=== PATIENT | female | born 1960 | race Caucasian/White ===

== ENCOUNTER 2018-08-11 09:43 | Inpatient (IN) | payer OTHER, SELFPAY ==
[2018-08-11] VITALS (17 sets, daily range): BP systolic 88–158; BP diastolic 42–69; PULSE 70–103; RESP 15–26; TEMP 37–37.5; O2SAT 90–100; BMI 31.1
--- NOTE | 2018-08-11 | PATH_ITS ---
[facility] Accession Number: [id number] . 01 Material submitted: . APPENDIX . 02 Diagnosis: Appendix, Laparoscopic Appendectomy: Acute appendicitis and serositis with features suggestive of rupture by microscopic examination. MRV/08/13/2018 . 02 Electronically signed: . Jesika Toscano MD, Pathologist NPI- [id number] . 01 Gross description: . Received in formalin, labeled appendix, is an intact appendix (length-6.3 cm, diameter-1.5 cm) with jansen-jackson smooth shiny focally eroded serosa with attached mesoappendix (up to 3.0 cm in depth). The resection margin is received opened. The specimen is partially covered in jansen-jackson flaky friable exudate. The lumen contains brown, solid soft material. The wall is up to 0.2 cm thick. No nodules, masses or lesions are identified. The resection margin is inked black. Section code: (A1) resection margin en face and three additional manufacturer representative serial sections; (A2) one-half of the bivalved tip. ([id number]) /MRV . 02 Pathologist provided ICD-10: K35.20 . 02 CPT . 713587 Performed at: 01 [facility] [address], [place], [place] [id number] MD Ever Douglas MD Phone: [phone] Performed at: 02 [facility] [address] [place], [place] [id number] MD Telma Rubio MD Phone: [phone]
--- NOTE | 2018-08-11 10:09 | PC.NURSE ---
reports anterior abdominal pain onset friday night, stabbing, with abdominal distentions, nausea and vomiting 12 times in the last 24 hours. diarrhea last friday, denies diarrhea at this time, denies fever. reports, with frontal headache due to dehydrations.
--- NOTE | 2018-08-11 10:33 | ED.ABDPAIN ---
HPI - Abdominal Pain General Chief Complaint: Abdominal Pain Stated Complaint: throwing up for 2 days Time Seen by Provider: 08/11/18 09:56 Source: patient Mode of arrival: ambulatory Limitations: no limitations History of Present Illness HPI narrative: Patient is a 57-year-old female who presents with abdominal pain. She actually has had nausea vomiting ongoing for the last 3 days. She has had regular bowel movements. She has lower abdominal cramping more on right than left. No fever. She has been unable to keep anything down. MD complaint: abdominal pain Onset (ago): day(s) Pain Consistency: constant Location: diffuse Severity: mild Quality: cramping Related Data Home Medications Medication Instructions Recorded Confirmed Fish Oil 1 cap PO DAILY 08/11/18 08/11/18 Vitamin B 1 tab PO DAILY 08/11/18 08/11/18 Vitamin C 1 tab PO DAILY 08/11/18 08/11/18 Vitamin D3 1 cap PO DAILY 08/11/18 08/11/18 cetirizine [Zyrtec] 10 mg PO DAILY 08/11/18 08/11/18 magnesium 1 tab PO DAILY 08/11/18 08/11/18 multivitamin 1 tab PO DAILY 08/11/18 08/11/18 potassium 1 tab PO DAILY 08/11/18 08/11/18 Allergies Allergy/AdvReac Type Severity Reaction Status Date / Time No Known Drug Allergies Allergy Verified 08/11/18 14:17 Review of Systems Review of Systems GENERAL: Denies chills, fatigue, malaise, fever, sweats, travel HEENT: Denies sinus pain, ear pain, sore throat, difficulty swallowing, neck pain RESPIRATORY: Denies dyspnea, cough, wheezing, hemoptysis, sputum. CARDIOVASCULAR: Denies chest pain, palpitations, orthopnea, edema GASTROINTESTINAL: See HPI : Denies dysuria, frequency, incontinence, hematuria, urinary retention, flank pain. MUSCULOSKELETAL: Denies weakness, joint pain, or bony pain SKIN: No rash, no erythema, no pruritus NEUROLOGIC: Denies weakness, dizziness, headache, numbness, change in speech, confusion PSYCHIATRIC: No concerning psychosocial issues. 12 point review of systems is negative except for those stated above and HPI PFSH Surgical History Status post left cataract extraction (Acute) S/P GARRETT-BSO (Resolved) Social History household members: family Smoking Status: Current some day smoker Social History household members: family Smoking Status: Current some day smoker Exam Initial Vital Signs Initial Vital Signs: Vital Signs Temperature 99.0 F 08/11/18 09:55 Pulse Rate 102 H 08/11/18 09:55 Respiratory Rate 16 08/11/18 09:55 Blood Pressure 143/68 H 08/11/18 09:55 Pulse Oximetry 100 08/11/18 09:55 GENERAL: Alert female appears in mild distress HEENT: Head atraumatic,EOMI, pupils reactive, CARDIOVASCULAR: Regular rate and rhythm without murmurs, rubs or gallops. RESPIRATORY: Breath sounds equal bilaterally, no wheezes rales or rhonchi. ABDOMEN: Soft, mild lower abdominal tenderness right more than left. No right upper quadrant pain negative Fortune sign no guarding or rebound EXTREMITIES: Normal range of motion, no clubbing or edema. Neurovascularly intact NEUROLOGICAL: Alert and oriented x4.Normal gait and speech. Cranial nerves II through XII grossly intact. SKIN: Warm, dry, no laceration, no petechiae, no rashes or lesions. Course Orders Ordered: ED Orders 08/11/18 10:10 Urine Culture Stat Urine Microscopic Stat 08/11/18 10:33 CT abdomen pelvis w con Stat 08/11/18 11:00 Complete Blood Count AUTO DIFF Stat Comprehensive Metabolic Panel Stat Lipase Stat Sodium Chloride (Normal Saline 0.9%) 1,000 mls @ 1,000 mls/hr IV CONT TOÑA Last Admin: 08/11/18 11:08 Dose: 1,000 mls/hr Ampicillin Sodium/Sulbactam (Sodium 3 gm/ Sodium Chloride) 100 mls @ 100 mls/hr IV PREOP TOÑA Lactated Ringer's (Lactated Ringers) 1,000 mls @ 100 mls/hr IV CONT TOÑA Last Admin: 08/11/18 13:50 Dose: 100 mls/hr Discontinued Medications Piperacillin/Tazobactam/Dextrose (Zosyn) 3.375 gm in 50 mls @ 100 mls/hr IV NOW ONE Stop: 08/11/18 12:36 Last Infusion: 08/11/18 13:16 Dose: 0 mls/hr Admin: 08/11/18 12:34 Dose: 100 mls/hr Ketorolac Tromethamine (Toradol) 30 mg IV NOW ONE Stop: 08/11/18 10:23 Last Admin: 08/11/18 11:08 Dose: 30 mg Ondansetron HCl (Zofran) 4 mg IV NOW ONE Stop: 08/11/18 10:23 Last Admin: 08/11/18 11:08 Dose: 4 mg Vital Signs - 8 hr 08/11/18 09:55 08/11/18 11:12 08/11/18 12:00 Temperature 99.0 F Pulse Rate 102 H 100 H 103 H Respiratory Rate 16 17 26 H Blood Pressure 143/68 H Blood Pressure [Left Arm] 158/62 H 135/56 L Pulse Oximetry 100 97 95 08/11/18 13:00 Temperature Pulse Rate 92 H Respiratory Rate 22 Blood Pressure Blood Pressure [Left Arm] 134/56 L Pulse Oximetry 96 MDM - Abdominal Pain Lab Data Attestation: I reviewed the patient's lab results. Result diagrams: 08/11/18 11:00 08/11/18 11:00 Lab Results 08/11/18 08/11/18 08/11/18 Range/Units 10:10 11:00 11:00 WBC 21.9 H (4.5-11.0) X10^3/uL RBC 5.44 H (4.0-5.2) X10^6/uL Hgb 15.6 (12.0-16.0) g/dL Hct 46.9 H (36-46) % MCV 86.2 (80-100) fL MCH 28.8 (26-34) PG MCHC 33.4 (30-36) % RDW 14.2 (11.6-14.8) % Plt Count 263 (150-400) X10^3/uL Neut % (Auto) 90.1 H (50-75) % Lymph % (Auto) 3.6 L (25-40) % [place] % (Auto) 6.1 (3-14) % Eos % (Auto) 0.0 L (2-4) % Baso % (Auto) 0.2 (0-2) % Neut # (Auto) 35174 H (3545-6416) /uL Lymph # (Auto) 800 L (9481-7910) /uL [place] # (Auto) 1300 H (0-900) /uL Eos # (Auto) 0 (0-450) /uL Baso # (Auto) 0 (0-100) /uL Sodium 141 (137-145) mmol/L Potassium 4.1 (3.4-5.1) mmol/L Chloride 100 (98-107) mmol/L Carbon Dioxide 28 (22-32) mmol/L BUN 11 (7-17) mg/dL Creatinine 0.90 (0.52-1.04) mg/dL Estimated GFR > 60.0 (>60) mL/min BUN/Creatinine Ratio 12.2 (6-22) Glucose 139 H (70-100) mg/dL Calcium 9.7 (8.4-10.2) mg/dL Total Bilirubin 1.0 (0.2-1.3) mg/dL AST 24 (14-36) IU/L ALT 48 (9-52) IU/L Alkaline Phosphatase 93 (38-126) U/L Total Protein 8.4 H (6.3-8.2) g/dL Albumin 4.8 (3.5-5.0) g/dL Globulin 3.6 (1.7-4.1) g/dL Albumin/Globulin Ratio 1.3 (1.0-2.8) Lipase 24 (23-300) U/L Urine RBC 0-1/hpf (0-5/HPF) Urine WBC 1-5/hpf (0-5/HPF) Ur Squamous Epith Cells 1-5 /hpf Amorphous Sediment 3+ Urine Bacteria None seen (None) Urine Mucus 1+ H (Negative) Ur Culture Indicated? Specimen cultured Point of care testing: Urine Dip Bedside Urine Glucose Negative Bedside Urine Bilirubin - Negative Bedside Urine Ketone +/- 5 Urine Specific [place] 1.030 Bedside Urine Occult Blood +/- Bedside Urine pH 6.0 Bedside Urine Protein + 30 Bedside Urine Urobilinogen - Negative Bedside Urine Nitrite - Negative Bedside Urine Leukocytes +/- [address] scan - abdomen: Radiologist's impression: PROCEDURE: CT ABDOMEN PELVIS W CON INDICATIONS: lower abdomnial pain TECHNIQUE: After the administration of intravenous contrast, 5 mm thick sections acquired from the diaphragm to the symphysis. 5 mm coronal and sagittal reformats were acquired. For radiation dose reduction, the following was used: automated exposure control, adjustment of mA and/or kV according to patient size. COMPARISON: None. FINDINGS: Image quality: Excellent. ABDOMEN: Lung bases: Lung bases are clear. Heart size is normal. Solid organs: Liver is normal in size and enhancement. Gallbladder demonstrates a calculus within its lumen measuring 20 mm diameter without surrounding fat stranding.. Biliary system is non dilated. Pancreas enhances normally. Spleen is normal in size and enhancement. No adrenal nodules. Small left interpolar/inferior pole renal cysts. Kidneys demonstrate otherwise normal size and enhancement, without hydronephrosis. Peritoneum and bowel: Mildly prominent small bowel loops are present within the right and left lower quadrants, likely reactive. Bowel loops demonstrate otherwise normal wall thickness and caliber. The appendix is moderately distended measuring 14 mm, and demonstrating severe surrounding fat stranding as well as a small amount of surrounding fluid. An appendicolith is present at the base. No free fluid or air. Nodes and vessels: No retroperitoneal or mesenteric adenopathy by size criteria. Aorta and inferior vena cava are normal in size. Miscellaneous: No ventral hernias. PELVIS: Genitourinary: Bladder wall thickness is normal. Miscellaneous: No inguinal hernias or adenopathy. Bones: No suspicious bony lesions. No vertebral body compression fractures. IMPRESSION: 1. Severe appendicitis with appendicolith, possibly ruptured. Mild adjacent small bowel dilatation, consistent with secondary ileus. 2. Cholelithiasis. 3. Findings discussed with Dr. Barron on 08.11.18 at 1153 hrs. Dictated by: Fidel Pablo M.D. on 08/11/2018 at 11:51 Approved by: Fidel Pablo M.D. on 08/11/2018 at 11:54 MDM Narrative Medical decision making narrative: 12:05pm Dr. Rodrigues notified of patient's symptoms and test results. Recommend Cory will be down to evaluate her shortly Patient going directly to OR Discharge Plan Departure Patient Disposition: Admitted As Inpatient Clinical Impression: Acute appendicitis Discharge Date/Time: 08/11/18 13:32 Interventions: ED Discharge Assessment Last Done: 08/11/18 13:26 Admit Date/Time: 08/11/18 13:16 Admit Provider: Mann Rodrigues
[2018-08-11 10:35] LABS: Bacteria Urine None Seen
[2018-08-11 10:50] LABS: Amorphous Sediment Urine 3+; Mucus Urine 1+ (Negative); RBC Urine 0-1/HPF (0-5/HPF); Squamous Epithelial Cell Urine 1-5 /HPF; WBC Urine 1-5/HPF (0-5/HPF)
[2018-08-11 10:51] LABS: Culture Indicated Urine Specimen Cultured
[2018-08-11] MEDS: ONDANSETRON 4 MG/2 ML INJ IV (11:08)
[2018-08-11] MEDS: SODIUM CHLORIDE 0.9% 1,000 ML 1000 ML IV (11:08)
[2018-08-11] MEDS: KETOROLAC 60 MG/2 ML VIAL 30 MG IV (11:08)
[2018-08-11 11:10] LABS: Add Manual Diff / Slide Review NO; Basophils Absolute Auto 0 /uL (0-100); Basophils Percent Auto 0.2 % (0-2); Eosinophils Absolute Auto 0 /uL (0-450); Hematocrit 46.9 % (36-46); Hemoglobin 15.6 g/dL (12.0-16.0); Lymphocytes Absolute Auto 800 /uL (1100-4500); Lymphocytes Percent Auto 3.6 % (25-40); Mean Corpuscular HGB Conc 33.4 % (30-36); Mean Corpuscular Hemoglobin 28.8 PG (26-34); Mean Corpuscular Volume 86.2 fL (80-100); Monocytes Absolute Auto 1300 /uL (0-900); Monocytes Percent Auto 6.1 % (3-14); Neutrophils Absolute Auto 19800 /uL (1500-7000); Neutrophils Percent Auto 90.1 % (50-75); Platelet Count 263 X10^3/uL (150-400); Red Blood Cell Count 5.44 X10^6/uL (4.0-5.2); Red Cell Distribution Width 14.2 % (11.6-14.8); White Blood Cell Count 21.9 X10^3/uL (4.5-11.0)
[2018-08-11 11:21] LABS: Alanine Aminotransferase 48 IU/L (9-52); Albumin 4.8 g/dL (3.5-5.0); Albumin Globulin Ratio 1.3 (1.0-2.8); Alkaline Phosphatase 93 U/L (38-126); Aspartate Aminotransferase 24 IU/L (14-36); BUN Creatinine Ratio 12.2 (6-22); Blood Urea Nitrogen 11 mg/dL (7-17); Calcium 9.7 mg/dL (8.4-10.2); Carbon Dioxide 28 mmol/L (22-32); Chloride 100 mmol/L (98-107); Estimated Glomerular Filt Rate > 60.0 mL/min (>60); Globulin 3.6 g/dL (1.7-4.1); Glucose 139 mg/dL (70-100); HEMOLYSIS < 15 (0-50); Lipase 24 U/L (23-300); Potassium 4.1 mmol/L (3.4-5.1); Sodium 141 mmol/L (137-145); Total Protein 8.4 g/dL (6.3-8.2)
[2018-08-11] MEDS: PIPERACILLIN-TAZO 3.375 GM/50 ML FROZ.PIGGY IV ×3 (12:34→23:31)
--- NOTE | 2018-08-11 13:30 | P.HP_ITS ---
History of Present Illness Date Patient Seen: 08/11/18 Time Patient Seen: 13:10 Chief complaint: throwing up for 2 days Narrative: The patient is a woman with a 4 day history of abdominal pain accompanied by nausea and vomiting. The pain has settled in her right lower quadrant. She has never had pain like this before. It increases with motion. Is persistent dull ache. Holding still makes it feel a little better. Patient History Surgical History Status post left cataract extraction (Acute) S/P GARRETT-BSO (Resolved) Social History Smoking Status: Current some day smoker Family & Social History Safety & Behavioral: Feels Safe in Current Yes Environment Been Physically Hurt or No Threatened By a Person Tobacco & Substance use: Smoking Status Current some day smoker alcohol intake frequency 0-2 drinks per day Substance Use Type does not use Meds Home Medications Medication Instructions Recorded Confirmed Type Fish Oil 1 cap PO DAILY 08/11/18 08/11/18 History Vitamin B 1 tab PO DAILY 08/11/18 08/11/18 History Vitamin C 1 tab PO DAILY 08/11/18 08/11/18 History Vitamin D3 1 cap PO DAILY 08/11/18 08/11/18 History cetirizine [Zyrtec] 10 mg PO DAILY 08/11/18 08/11/18 History magnesium 1 tab PO DAILY 08/11/18 08/11/18 History multivitamin 1 tab PO DAILY 08/11/18 08/11/18 History potassium 1 tab PO DAILY 08/11/18 08/11/18 History Allergies Allergy/AdvReac Type Severity Reaction Status Date / Time No Known Drug Allergies Allergy Verified 08/11/18 09:59 Review of Systems Review of Systems Patient had a cataract removed from her left eye. She does not have 1 in her right eye. No other visual problems. Ears without lesion no loss of hearing. No tooth aches or trouble swallowing. No cough cold or asthma. No problems with her chest pain or heart problems or murmurs. No black or bloody bowel movements. No seizures or blackouts. No anxiety or depression. No unusual bruising or bleeding. Exam Vital Signs (past 8 hours): - 08/11/18 09:55 08/11/18 11:12 08/11/18 12:00 Temperature 99.0 F Pulse Rate 102 H 100 H 103 H Respiratory Rate 16 17 26 H Blood Pressure 143/68 H Blood Pressure [Left Arm] 158/62 H 135/56 L Pulse Oximetry 100 97 95 08/11/18 13:00 Temperature Pulse Rate 92 H Respiratory Rate 22 Blood Pressure Blood Pressure [Left Arm] 134/56 L Pulse Oximetry 96 Oxygen Delivery Method Room Air Narrative Exam Narrative: Co operative woman in no apparent distress. A little overweight. Her eyes are nonicteric. The flash of her lenses seen in her left pupil. Conjunctivae are pink. Ears without lesion. Nasal septum midline. No polyps seen. Oral mucosa is pink dry no open lesions. Lips are not split. No nodes in the neck or supraclavicular areas. Trachea is midline and mobile. Thyroid is not enlarged. There are no masses in the neck or thyroid. Lungs are clear to auscultation without rales or rhonchi. Equal percussion. Heart regular rate and rhythm without murmur gallop. No bruit in the neck. Abdomen is protuberant soft. She has localized tenderness in the right lower quadrant. The remainder the abdomen is soft. She is alert and oriented x3. Speech ring content are appropriate. No bony deformities of the extremities are noted. She has no joint swelling. Dorsalis pedis pulses are 2+ bilaterally. Objective Imaging CT scan - abdomen: My impression: Patient has they gallstone as an incidental finding. No gallbladder wall thickening. Single stone is visible. Patient has marked inflammation in the right lower quadrant. Her appendix is markedly dilated at IC what I believe her 2 fecaliths. One at the base and 1 in the shaft. No obvious abscess at this time. Labs Result Diagrams: 08/11/18 11:00 08/11/18 11:00 Labs: Laboratory Results - last 24 hr 08/11/18 08/11/18 08/11/18 10:10 11:00 11:00 WBC 21.9 H RBC 5.44 H Hgb 15.6 Hct 46.9 H MCV 86.2 MCH 28.8 MCHC 33.4 RDW 14.2 Plt Count 263 Neut % (Auto) 90.1 H Lymph % (Auto) 3.6 L [place] % (Auto) 6.1 Eos % (Auto) 0.0 L Baso % (Auto) 0.2 Neut # (Auto) 30808 H Lymph # (Auto) 800 L [place] # (Auto) 1300 H Eos # (Auto) 0 Baso # (Auto) 0 Sodium 141 Potassium 4.1 Chloride 100 Carbon Dioxide 28 BUN 11 Creatinine 0.90 Estimated GFR > 60.0 BUN/Creatinine Ratio 12.2 Glucose 139 H Calcium 9.7 Total Bilirubin 1.0 AST 24 ALT 48 Alkaline Phosphatase 93 Total Protein 8.4 H Albumin 4.8 Globulin 3.6 Albumin/Globulin Ratio 1.3 Lipase 24 Urine RBC 0-1/hpf Urine WBC 1-5/hpf Ur Squamous Epith Cells 1-5 /hpf Amorphous Sediment 3+ Urine Bacteria None seen Urine Mucus 1+ H Ur Culture Indicated? Specimen cultured Assessment & Plan Plan: Assessment/Plan Narrative: Healthy patient with 4 day history of abdominal pain and findings suggestive of perforation of the appendix. It may be localized given house off the remainder of her abdomen is. I have discussed the operation laparoscopically remove her appendix. I also talked to her about the potential need open to remove it. Risks of bleeding infection abscess formation were discussed. She appears to understand. I told her to expect have a drain. I also talked to her about her gallstone. This may be simply an incidental finding that is asymptomatic and therefore may be observed. We will deal with that as an outpatient.
[2018-08-11] MEDS: LACTATED RINGERS 1,000 ML 100 ML IV (13:50)
[2018-08-11] MEDS: AMPICILLIN/SULBACTAM 3 GM 3 GM in SODIUM CHLORIDE 0.9% 100 ML IV (14:48)
--- NOTE | 2018-08-11 15:26 | SUR.OPER ---
Supine on padded OR bed, head on pillow, safety belt at thigh, left arm padded and tucked at side. Right arm secured on padded arm oard <90 degrees abduction. Legs uncrossed. Padded footboard in place. Tape over blanket to secure lower legs.
[2018-08-11] MEDS: BUPIVACAINE 0.5% (PF) VIAL 20 ML INJ (15:38)
[2018-08-11] MEDS: LACTATED RINGERS 1,000 ML 42 ML IV (16:15)
[2018-08-11] MEDS: LACTATED RINGERS 1,000 ML 125 ML IV (17:53)
--- NOTE | 2018-08-11 18:48 | P.OP_ITS ---
Operative Date/Time/Diagnoses Date of procedure: 08/11/18 Time of procedure: 18:40 Pre-op diagnosis: Perforated appendicitis acute Post-op diagnosis: same Procedure & Clinicians Procedure: Laparoscopic appendectomy Same procedure as scheduled: Yes Indications: Right lower quadrant pain and fever, elevated white blood cell count, tenderness in the right lower quadrant, abnormal CT scan Surgeon: Mann Rodrigues Click Yes if Unassisted: Yes Anesthesia Type: General Operative Notes Findings: Perforated appendix with spillage of fecalith into the peritoneal cavity Closure Type: primary Specimen(s): other (Appendix) Applied: drain(s) (Hesham-Barker 7 mm placed in the right gutter) Estimated Blood Loss (mL): 10 Blood products transfused: none Procedure in detail: Patient was placed supine on the operating room table underwent general endotracheal anesthesia. She was prepped and draped in the usual fashion. Local anesthetic was infiltrated and a small incision made beneath the umbilicus. It was carried down under direct vision in the peritoneal cavity. Stay sutures of 0 Vicryl were placed in the fascia. An 12 mm port was inserted and the abdomen was insufflated. Additional port was placed in left lower quadrant. Through these 2 ports I cut adhesions of omentum to the anterior abdominal wall in the pelvic area. This allowed me to easily see into the area of the appendix. It also allowed me to place a port between the umbilicus and the suprapubic area. The cecum was identified as was the terminal ileum. The appendix was under it and densely adherent to the surrounding structures due to inflammation and perforation. Outside the appendix was stool , presumptively from a fecalith, given that the cecum was not leaking. Portions of the appendix were frankly necrotic. The mesoappendix was divided with cautery and scissors. The base was cleared and appeared to be viable. A loop of 0 PDS was placed at the base and distal to this where the appendix had perforated the appendix was transected with cautery. The appendix is immediately placed in a bag and removed without spillage. The right lower quadrant was irrigated as was the pelvis and they were suctioned free of fluid. I removed as much fecalith as I could visualize prior to irrigation. A 7 mm Hesham-Barker drain was placed in the right gutter and brought out through the suprapubic port site. It was secured with 3 0 nylon. The port other 2 ports were removed. The stay sutures at the umbilicus were tied and I closed the fascia between these 2 stay sutures with a 2 0 PDS. The wounds were irrigated and for 0 Vicryl was used to close the skin in a subcuticular interrupted fashion. Steri-Strips and Band-Aids were applied. Patient was awakened and taken recovery room good condition. Complications: none Condition: stable Disposition: PACU Plan for aftercare: Admit
[2018-08-11] MEDS: GABAPENTIN 300 MG CAPSULE PO (21:07)
[2018-08-11] MEDS: ACETAMINOPHEN 325 MG TABLET 650 MG PO (21:09)
[2018-08-11] MEDS: KETOROLAC 30 MG/ML VIAL IV (23:35)
[2018-08-12] VITALS (8 sets, daily range): BP systolic 100–116; BP diastolic 48–68; PULSE 61–80; RESP 16–18; TEMP 36.6–37.2; O2SAT 92–97
[2018-08-12] MEDS: LACTATED RINGERS 1,000 ML 125 ML IV ×2 (03:09→11:47)
[2018-08-12] MEDS: PIPERACILLIN-TAZO 3.375 GM/50 ML FROZ.PIGGY IV ×3 (05:32→16:45)
[2018-08-12 07:29] LABS: Add Manual Diff / Slide Review NO; Basophils Absolute Auto 0 /uL (0-100); Basophils Percent Auto 0.1 % (0-2); Eosinophils Absolute Auto 0 /uL (0-450); Hematocrit 38.5 % (36-46); Hemoglobin 12.7 g/dL (12.0-16.0); Lymphocytes Absolute Auto 1000 /uL (1100-4500); Lymphocytes Percent Auto 5.6 % (25-40); Mean Corpuscular HGB Conc 33.1 % (30-36); Mean Corpuscular Hemoglobin 28.5 PG (26-34); Mean Corpuscular Volume 86.4 fL (80-100); Monocytes Absolute Auto 1000 /uL (0-900); Monocytes Percent Auto 5.6 % (3-14); Neutrophils Absolute Auto 16600 /uL (1500-7000); Neutrophils Percent Auto 88.7 % (50-75); Platelet Count 187 X10^3/uL (150-400); Red Blood Cell Count 4.45 X10^6/uL (4.0-5.2); Red Cell Distribution Width 14.4 % (11.6-14.8); White Blood Cell Count 18.7 X10^3/uL (4.5-11.0)
[2018-08-12] MEDS: ENOXAPARIN 40 MG/0.4 ML SYRINGE SUBCUT (09:13)
[2018-08-12] MEDS: GABAPENTIN 300 MG CAPSULE PO ×2 (09:13→20:55)
--- NOTE | 2018-08-12 10:41 | CM.IDA ---
DC home when medically stable is expected. Following closely. MARILY Discharge Planning/Care Management CM Discharge Assessment Start: 08/12/18 10:39 Freq: Status: Active Protocol: Document 08/12/18 10:39 MARILY (Rec: 08/12/18 10:41 MARILY [id number]) Discharge Planning Assessment Assigned Outside [employer] SYLVIA Alejandro DPOA/Assigned Designee Name Bertin Fortune dtr/[email or web address] Contact Information [phone] Advance Directives? No Advance Directives on File Yes History Provided By Patient Prior Living Arrangements House Household Members family children Type of transporation used prior to Drives own vehicle admit Independent with ADL's Yes Is patient alert and oriented? Yes Barriers to Discharge No Comment Met w/pt at bedside, explained SW role. Pt lives alone, indp at baseline and goes to the [facility] for her primary care . Pt expects to remain in the hospital for at least another night or tow and has no concerns about returning home when medically stable. Pt has support from friends and family as needed. DC home is expected. Discharge Plan Home Transportation Arrangement Family Referrals Initiated None needed Whiteboard Updated in Patient Room with Yes name and ext. 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
[2018-08-12] MEDS: KETOROLAC 30 MG/ML VIAL IV ×2 (11:51→18:42)
--- NOTE | 2018-08-12 18:57 | P.PN_ITS ---
Subjective Date Patient Seen: 08/12/18 Time Patient Seen: 13:29 Interval history: Post laparoscopic appendectomy for perforated appendix with abscess formation and spillage of small amount of stool the form of fecalith. She feels much better than she did yesterday. Her pain is better. She has little nauseated really does not want to advance beyond a clear liquid diet. Exam Vital Signs (past 8 hours): - 08/12/18 12:03 08/12/18 14:40 08/12/18 15:50 Temperature 98.8 F 98.2 F Pulse Rate 72 63 79 Respiratory Rate 16 18 18 Blood Pressure 108/58 L 116/68 103/48 L Pulse Oximetry 93 97 Oxygen Delivery Method Room Air Oxygen Flow Rate 0 Narrative Exam Narrative: Excellent respiratory effort. Abdomen is soft. Localized mild tenderness the right lower quadrant. Drainage blood tinged. Objective Labs Result Diagrams: 08/12/18 06:58 08/11/18 11:00 Labs: Laboratory Results - last 24 hr 08/12/18 06:58 WBC 18.7 H RBC 4.45 Hgb 12.7 Hct 38.5 MCV 86.4 MCH 28.5 MCHC 33.1 RDW 14.4 Plt Count 187 Neut % (Auto) 88.7 H Lymph % (Auto) 5.6 L [place] % (Auto) 5.6 Eos % (Auto) 0.0 L Baso % (Auto) 0.1 Neut # (Auto) 94140 H Lymph # (Auto) 1000 L [place] # (Auto) 1000 H Eos # (Auto) 0 Baso # (Auto) 0 Assessment & Plan Post-op Postoperative Procedures Operation Date: 08/11/18 13:45 Actual Procedures Side Surgeon p Laparoscopic Appendectomy Mann Rodrigues MD Postoperative status: doing well Postoperative plan narrative: Continue broad-spectrum antibiotics. Ambulate. Advance diet when ready. Expect her to be her several more days. Quality VTE Deep Vein Thrombosis/Pulmonary Embolism Present on Admission: No
--- NOTE | 2018-08-12 19:29 | PC.NURSE ---
Patient continues to report severe headache, denies pain to abdomen; IV toradol administered; pt declines Tylenol; BTs hypoactive, flatulence present; bulky drsg to abdomen has old shadowy drainage, intact, BIRDIE drain compressed with scant serosanguinous fluid; fine crackles to RLL, pt encouraged to deep breath; pt ambulated in hallway with student nurse X1, but is lying supine with ice on forehead and lights off due to headache
[2018-08-12] MEDS: DEXTROSE 5%-0.45% NS 1,000 ML 84 ML IV (20:54)
[2018-08-13] MEDS: PIPERACILLIN-TAZO 3.375 GM/50 ML FROZ.PIGGY IV ×5 (00:17→23:11)
[2018-08-13] MEDS: OXYCODONE IR 5 MG TABLET 10 MG PO ×4 (00:22→19:00)
[2018-08-13 04:30] VITALS: BP 127/71; PULSE 82; RESP 18; TEMP 36.5; O2SAT 92
[2018-08-13 05:54] LABS: Add Manual Diff / Slide Review NO; Basophils Absolute Auto 0 /uL (0-100); Basophils Percent Auto 0.2 % (0-2); Eosinophils Absolute Auto 100 /uL (0-450); Eosinophils Percent Auto 0.6 % (2-4); Hematocrit 38.6 % (36-46); Lymphocytes Absolute Auto 1300 /uL (1100-4500); Lymphocytes Percent Auto 9.9 % (25-40); Mean Corpuscular HGB Conc 33.6 % (30-36); Mean Corpuscular Hemoglobin 28.8 PG (26-34); Mean Corpuscular Volume 85.8 fL (80-100); Monocytes Absolute Auto 800 /uL (0-900); Monocytes Percent Auto 5.7 % (3-14); Neutrophils Absolute Auto 11200 /uL (1500-7000); Neutrophils Percent Auto 83.6 % (50-75); Platelet Count 189 X10^3/uL (150-400); Red Cell Distribution Width 14.1 % (11.6-14.8); White Blood Cell Count 13.5 X10^3/uL (4.5-11.0)
[2018-08-13 07:15] VITALS: BP 115/56; PULSE 82; RESP 16; TEMP 37.2; O2SAT 92
[2018-08-13] MEDS: GABAPENTIN 300 MG CAPSULE PO ×2 (08:50→21:19)
[2018-08-13] MEDS: ENOXAPARIN 40 MG/0.4 ML SYRINGE SUBCUT (08:50)
[2018-08-13] MEDS: DEXTROSE 5%-0.45% NS 1,000 ML 84 ML IV ×2 (08:53→21:45)
[2018-08-13 11:23] VITALS: BP 146/72; PULSE 78; RESP 18; TEMP 36.9; O2SAT 96
--- NOTE | 2018-08-13 13:57 | PC.NURSE ---
Day Shift-Pt A&OX4, appropriate, Rates 2/10 abd pain, 3-5/10 headache, prn Oxycodone given X1 with good effect. Pt wanted 5mg dose not 10mg that was ordered. Abd dressing CDI, BIRDIE insitu draining sero-sang fluid on bulb suction. IVF infusing well to right AC PIV. Up indep in room, ambulating in hallways X3. No other voiced concerns, able to make needs known.
[2018-08-13 15:20] VITALS: BP 139/78; PULSE 77; RESP 16; TEMP 36.9; O2SAT 96
--- NOTE | 2018-08-13 19:36 | PM.PNPO.1 ---
Subjective Date Patient Seen: 08/13/18 Time Patient Seen: 19:28 Interval history: Patient feeling well. Very little pain. She would like some regular food. Exam Vital Signs (past 8 hours): - 08/13/18 15:20 Temperature 98.4 F Pulse Rate 77 Respiratory Rate 16 Blood Pressure 139/78 Pulse Oximetry 96 Oxygen Delivery Method Room Air Oxygen Flow Rate 0 Narrative Exam Narrative: Abdomen soft mildly distended. No unusual tenderness. Objective Labs Result Diagrams: 08/13/18 05:35 08/11/18 11:00 Labs: Laboratory Results - last 24 hr 08/13/18 05:35 WBC 13.5 H RBC 4.50 Hgb 13.0 Hct 38.6 MCV 85.8 MCH 28.8 MCHC 33.6 RDW 14.1 Plt Count 189 Neut % (Auto) 83.6 H Lymph % (Auto) 9.9 L [place] % (Auto) 5.7 Eos % (Auto) 0.6 L Baso % (Auto) 0.2 Neut # (Auto) 82757 H Lymph # (Auto) 1300 [place] # (Auto) 800 Eos # (Auto) 100 Baso # (Auto) 0 Assessment & Plan Post-op Postoperative Procedures Operation Date: 08/11/18 13:45 Actual Procedures Side Surgeon p Laparoscopic Appendectomy Mann Rodrigues MD Postoperative day: 2 Postoperative status: doing well Postoperative plan narrative: Continue DVT prophylaxis and ambulation. Will check CBC in the morning. It has almost normalized. Advanced diet. Continue broad-spectrum antibiotics. Quality VTE Deep Vein Thrombosis/Pulmonary Embolism Present on Admission: No
[2018-08-13 21:15] VITALS: BP 139/67; PULSE 75; RESP 17; TEMP 37.2; O2SAT 95
[2018-08-14 00:07] VITALS: BP 137/89; PULSE 76; RESP 18; TEMP 37.2; O2SAT 93
[2018-08-14 04:30] VITALS: BP 128/96; PULSE 80; RESP 18; TEMP 36.8; O2SAT 93
[2018-08-14] MEDS: PIPERACILLIN-TAZO 3.375 GM/50 ML FROZ.PIGGY IV ×4 (05:18→23:50)
[2018-08-14 07:12] LABS: Add Manual Diff / Slide Review NO; Basophils Absolute Auto 0 /uL (0-100); Basophils Percent Auto 0.3 % (0-2); Eosinophils Absolute Auto 200 /uL (0-450); Eosinophils Percent Auto 2.9 % (2-4); Hematocrit 39.2 % (36-46); Hemoglobin 13.2 g/dL (12.0-16.0); Lymphocytes Absolute Auto 900 /uL (1100-4500); Lymphocytes Percent Auto 11.5 % (25-40); Mean Corpuscular HGB Conc 33.7 % (30-36); Monocytes Absolute Auto 500 /uL (0-900); Monocytes Percent Auto 6.6 % (3-14); Neutrophils Absolute Auto 6500 /uL (1500-7000); Neutrophils Percent Auto 78.7 % (50-75); Platelet Count 211 X10^3/uL (150-400); Red Blood Cell Count 4.56 X10^6/uL (4.0-5.2); Red Cell Distribution Width 14.5 % (11.6-14.8); White Blood Cell Count 8.2 X10^3/uL (4.5-11.0)
[2018-08-14 08:02] VITALS: BP 137/59; PULSE 74; RESP 18; TEMP 36.4; O2SAT 94
[2018-08-14] MEDS: OXYCODONE IR 5 MG TABLET 10 MG PO ×2 (08:23→20:33)
[2018-08-14] MEDS: ACETAMINOPHEN 325 MG TABLET 650 MG PO (08:23)
[2018-08-14] MEDS: GABAPENTIN 300 MG CAPSULE PO ×2 (08:23→20:23)
[2018-08-14] MEDS: BISACODYL 10 MG SUPP PR (09:30)
[2018-08-14] MEDS: ENOXAPARIN 40 MG/0.4 ML SYRINGE SUBCUT (09:44)
[2018-08-14] MEDS: DEXTROSE 5%-0.45% NS 1,000 ML 84 ML IV ×2 (10:51→23:20)
--- NOTE | 2018-08-14 10:55 | PC.NURSE ---
Addendum entered by Jess Rose R.N. 08/14/18 14:28: PAIN - comfortable in chair, declines any pain medications at this time. Original Note: AM NOTE - alert, alonso gen diet this am, denies nausea, bt present w/flatus, does have some headache and mild abd discomfort, discussed medications and after meal given 650mg po tylenol and prefers 5mg po oxycodone, headache resolved and narcotic is managing her discomfort well, bipin compressed with serosang in bulb, dsg w/some shadow drainage at site, d, intact, ra 94%, later am dulcolax suppos admin and pt did have flatus and small loose stools, ambul hallway.
[2018-08-14 12:34] VITALS: BP 141/62; PULSE 62; RESP 18; TEMP 36.7; O2SAT 96
[2018-08-14 15:20] VITALS: BP 142/79; PULSE 58; RESP 16; TEMP 36.7; O2SAT 97
--- NOTE | 2018-08-14 18:15 | PM.PNPO.1 ---
Subjective Date Patient Seen: 08/14/18 Time Patient Seen: 18:15 Interval history: Patient postop laparoscopic appendectomy for perforation. She feels well. Had a moderate bowel movement today. Had some chicken for evening meal feels a little bloated. Overall feeling very well. Not really having much pain. Exam Vital Signs (past 8 hours): - 08/14/18 12:34 08/14/18 15:20 Temperature 98.1 F 98.1 F Pulse Rate 62 58 L Respiratory Rate 18 16 Blood Pressure 141/62 H 142/79 H Pulse Oximetry 96 97 Oxygen Delivery Method Room Air Oxygen Flow Rate 0 Narrative Exam Narrative: Operative no apparent distress. Lungs are clear. Abdomen is soft no unusual tenderness. Objective Labs Result Diagrams: 08/14/18 06:37 08/11/18 11:00 Labs: Laboratory Results - last 24 hr 08/14/18 06:37 WBC 8.2 RBC 4.56 Hgb 13.2 Hct 39.2 MCV 86.0 MCH 29.0 MCHC 33.7 RDW 14.5 Plt Count 211 Neut % (Auto) 78.7 H Lymph % (Auto) 11.5 L [place] % (Auto) 6.6 Eos % (Auto) 2.9 Baso % (Auto) 0.3 Neut # (Auto) 6500 Lymph # (Auto) 900 L [place] # (Auto) 500 Eos # (Auto) 200 Baso # (Auto) 0 Assessment & Plan Post-op Postoperative Procedures Operation Date: 08/11/18 13:45 Actual Procedures Side Surgeon p Laparoscopic Appendectomy Mann Rodrigues MD Postoperative day: 3 Postoperative status: doing well Quality VTE Deep Vein Thrombosis/Pulmonary Embolism Present on Admission: No
[2018-08-14 19:30] VITALS: BP 141/85; PULSE 63; RESP 16; TEMP 36.8; O2SAT 97
[2018-08-15 00:31] VITALS: BP 113/53; PULSE 72; RESP 16; TEMP 36.8; O2SAT 94
[2018-08-15 05:23] VITALS: BP 143/78; PULSE 78; RESP 16; TEMP 36.9; O2SAT 95
[2018-08-15] MEDS: PIPERACILLIN-TAZO 3.375 GM/50 ML FROZ.PIGGY IV ×2 (05:55→11:29)
[2018-08-15] MEDS: ONDANSETRON 4 MG/2 ML INJ IV (08:04)
[2018-08-15] MEDS: GABAPENTIN 300 MG CAPSULE PO (08:57)
[2018-08-15] MEDS: OXYCODONE IR 5 MG TABLET 10 MG PO (08:57)
[2018-08-15] MEDS: ENOXAPARIN 40 MG/0.4 ML SYRINGE SUBCUT (08:58)
--- NOTE | 2018-08-15 10:13 | PC.NURSE ---
Addendum entered by Jess Rose R.N. 08/15/18 13:10: DC - pt alonso yogurt for lunch, denies nausea, given 650mg tylenol prior to discharge, hep lock dc'd, when dtr arrived, reviewed dc instructions, scripts provided, belongings gathered, including cell phone and charge, bag, clothing, tsf to and escorted to family car. Original Note: AM NOTE - alert, not eating breakfast this am w/nausea, abd soft, + bt and has been passing flatus, bipin with small qty serous fluid, given 4mg iv zofran and then yogurt for breakfast, nausea resolved, discussed pain mgt and prefers 5mg oxycodone, after pain medication providing relief, suture removed and bipin removed w/o difficulty, 4x4 and hypafix over.
--- NOTE | 2018-08-15 12:28 | P.DS_ITS ---
History of Present Illness Date Patient Seen: 08/15/18 Time Patient Seen: 12:26 Chief complaint: throwing up for 2 days Narrative: Jeny is a pleasant 57-year-old lady who was admitted for nausea and vomiting. She was seen and evaluated in the emergency room and found to have perforated appendicitis with an abscess. Dr. Rodrigues was consulted for definitive management. Discharge Providers Date of admission: 08/11/18 13:16 Consults: 08/11/18 17:41 Consult to Discharge Planning Routine Comment: Discharge provider: Lynn Huber MD Discharge Date: 08/15/18 Summary Discharge Diagnosis: Perforated appendicitis with abscess Hospital Course: The patient was taken to the operating room where she underwent an uneventful laparoscopic appendectomy with drain placement. She was returned to the med surg unit postoperatively for convalescence and IV antibiotic therapy as well as pain control. Today she is tolerating a regular diet with minimal nausea, walking the halls unassisted, and reports her pain is well controlled. She is discharged to her home in the care of her family. She is to follow up with Dr. Rodrigues per his orders. Status at Discharge Cognitive/behavioral status at discharge: Normal Functional status at discharge: independent ambulation Overall status at discharge: patient is progressing back to baseline Time Spent with Patient Less than 30 minutes Exam Vital Signs (past 8 hours): - 08/15/18 05:23 Temperature 98.4 F Pulse Rate 78 Respiratory Rate 16 Blood Pressure 143/78 H Pulse Oximetry 95 Oxygen Delivery Method Room Air Oxygen Flow Rate 0 Objective Labs Result Diagrams: 08/14/18 06:37 08/11/18 11:00 Discharge Plan Discharge Plan Patient Disposition: Home Discharge comment: You had acute perforated appendicitis with an abscess. You were treated with the broad-spectrum antibiotic Zosyn. Your being discharged on 2 oral antibiotics. Once the bottles are empty you can stop them (about 4 days) Discharge Med Rec/Prescriptions Prescriptions: New hydrocodone-acetaminophen [[place]] 5-325 mg tablet 1 tab PO Q6H PRN (Reason: pain) Qty: 10 RF: 0 metronidazole [Flagyl] 500 mg tablet 500 mg PO TID Qty: 12 RF: 0 ibuprofen 600 mg tablet 600 mg PO TID-QID PRN (Reason: painful procedure) Qty: 20 RF: 0 amoxicillin-pot clavulanate [Augmentin] 875-125 mg tablet 1 tab PO BID Qty: 8 RF: 0 ondansetron 4 mg tablet,disintegrating 4 mg PO QID PRN (Reason: nausea and vomiting) Qty: 20 RF: 0 Continue multivitamin Tablet 1 tab PO DAILY RF: 0 cetirizine [Zyrtec] 10 mg Tablet 10 mg PO DAILY RF: 0 Fish Oil 1 cap PO DAILY RF: 0 Vitamin B 1 tab PO DAILY RF: 0 Vitamin C 1 tab PO DAILY RF: 0 Vitamin D3 1 cap PO DAILY RF: 0 magnesium 1 tab PO DAILY RF: 0 potassium 1 tab PO DAILY RF: 0 Provider Discharge Instructions Diet: Diet as Tolerated Activity: Do not lift over 10 lb for 4 weeks from the time of her operation. Do not push heavy items. You may shower. No pool or tub for 2 weeks Skin/Wound/Dressing Care Report to your healthcare provider any signs of infection, such as:: chills, fever, night sweats, increased pain and unusual redness Dressing: Keep drain site covered until it stops draining and appears closed Visit Report/Discharge Packet Instructions: Appendectomy -- Laparoscopic Surgery, Ondansetron, Hydrocodone/ Acetaminophen (By mouth), Metronidazole (By mouth), Amoxicillin/Clavulanate Potassium (By mouth) Visit Report Forms: Stroke Signs & Symptoms Discharge Data Attending Provider: Mann Rodrigues Admit Date/Time: 08/11/18 13:16 Discharges patient from system. Discharge Date/Time: 08/15/18 13:15 Quality VTE Deep Vein Thrombosis/Pulmonary Embolism Present on Admission: No
--- NOTE | 2018-08-15 12:35 | CM.DPC ---
DCP Cont: Patient is to be discharged home today. No concerns about discharge. Dr. Huber, surgeon, had seen patient today. She will be following up at Dr. Alvarado's office. P: Patient is to be discharged home today. Riri Crowe RN/Enrollment Services [facility]
[2018-08-15] MEDS: ACETAMINOPHEN 325 MG TABLET 650 MG PO (12:43)
== END 2018-08-15 13:15 | disposition home or self-care (01) | DRG 340 ==
LOC: ED 12:47 → AC 13:18
PROVIDERS: Admitting Provider Specialist; Emergency Provider Emergency Medicine; Visit Provider Specialist
PROC: 0DTJ4ZZ Resection of Appendix, Percutaneous Endoscopic Approach (ICD-10-PCS; CPT 44970; principal; 2018-08-11 13:45)
DX: K35.32 Acute appendicitis with perforation, localized peritonitis, and gangrene, without abscess (principal); F17.210 Nicotine dependence, cigarettes, uncomplicated; K35.31 Acute appendicitis with localized peritonitis and gangrene, without perforation
CPT/HCPCS: 36415; 36591; 44970; 74177; 80053; 81003; 81015; 83690; 85025; 87070; 87075; 87077; 87086; 87186; 87205; 88304; 96365; 96375; 99222; 99283; 99285; 99406; J0295; J0330; J1100; J1650; J1885; J2250; J2405; J2543; J2704; J3010; Q9967